=== PATIENT | male | born 1940 | race Caucasian/White ===

== ENCOUNTER 2016-12-03 09:59 | Inpatient (IN) | payer MEDICARE, OTHER ==
--- NOTE | ~2016-12-03 | CN ---
Consultation Report [facility] [address] [place]. [address] NAME: MONTY MUNOZ : 42 STATUS : ADM IN [facility]#: [id number] AGE: 76 ADM/REG DATE : 12/03/16 MR#: [id number] REPORT SERV DATE: 12/04/16 DICTATED BY: LEONARD CHAMPION DATE: 12/04/16 REPORT STATUS : Draft TRANSCRIBED BY: MODL DATE: 12/04/16 CONSULTATION REPORT DATE OF CONSULTATION: Dear Dr. Thompson: Thank you for requesting my opinion regarding evaluation and management of Mr. Monty Munoz's shortness of breath and hypoxic respiratory failure. Mr. Munoz is a pleasant 76-year- old gentleman with a significant past medical history of right upper lobe adenocarcinoma, status post lobectomy with recurrence in June of 2016, status post SBRT who presents to [facility] with worsening shortness of breath and dyspnea on exertion. The patient states that since his radiation therapy he has poor energy and shortness of breath. He has undergone several courses of outpatient antibiotics and over the past several weeks, he has developed a fever of 101 and worsening lslkpdwl-tv-mgwiee shortness of breath, well localized to the chest, nonradiating with no significant alleviating or exacerbating factors. He has had associated chills, productive green sputum, and left upper lobe chest discomfort. He denies any current chest pain, palpitations, nausea, vomiting, diarrhea, or constipation. During his hospitalization, he feels that he is slightly improved in terms of his dyspnea, but he is requiring high levels of oxygen. REVIEW OF SYSTEMS: A detailed 14-point review of systems was completed. Pertinent positives and negatives are listed above. PAST MEDICAL HISTORY: 1. Right upper lobe adenocarcinoma, status post right upper lobe lobectomy. 2. T1 N0 M0 stage IA moderately differentiated adenocarcinoma, status post SBRT. 3. Pleurodesis. 4. Coronary artery disease with a stent to place 12 years ago. 5. BPH. ALLERGIES: HYDROCHLOROTHIAZIDE, LOSARTAN, AND LIPITOR. HOME MEDICATIONS: Reviewed and located in the paper chart. FAMILY HISTORY: Cancer and coronary artery disease. SOCIAL HISTORY: The patient lives in [place], [place]. 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 He denies any significant alcohol or current illicit drug abuse. He did have a history of 28-[id number]-elxt smoking history, but quit 15 years ago. PHYSICAL EXAMINATION: Consultation Report [address] [place]. [address] NAME: MONTY MUNOZ : 42 STATUS : ADM IN PAT#: [id number] AGE: 76 ADM/REG DATE : 12/03/16 MR#: [id number] REPORT SERV DATE: 12/04/16 DICTATED BY: LEONARD CHAMPION DATE: 12/04/16 REPORT STATUS : Draft TRANSCRIBED BY: MODL DATE: 12/04/16 VITAL SIGNS: Afebrile, T-current 99.6; pulse of 121 on Vapotherm 20 liters; saturations 93%; blood pressure 197/60. GENERAL: Chronically ill-appearing elderly gentleman in mild respiratory distress. The patient able to communicate in full paragraphs at a time. HEENT: Normocephalic and atraumatic. Pupils are equal, round, and reactive to light and accommodation. Posterior oropharynx is clear. NECK: No JVD. No LAD. Trachea midline. CARDIOVASCULAR: Regular rate and rhythm. S1 and S2 present. LUNGS: Coarse bilateral breath sounds and rhonchi. ABDOMEN: Nontender, nondistended, and soft. Positive bowel sounds. EXTREMITIES: No clubbing, cyanosis, or edema. SKIN: No new rashes, lesions, or ulcers. PSYCHIATRIC: Alert and oriented x3. Cranial nerves II through XII are intact. Gait not tested. DTRs not performed. LABORATORY: White count of 9, down from 13.9; hemoglobin 10; and platelet count of 371. Troponin leak. Procalcitonin is negative. Creatinine of 0.92. PH is 7.47, PaCO2 of 30, and PaO2 of 66. 1. CTA of the chest performed on 12/03/2016 demonstrates no evidence of PE. 2. Previously noted right lower lobe 1.6 cm subpleural nodule is obscured from adjacent lung consolidation. 3. Multifocal consolidation in the lower lobes and lateral right middle lobe concerning for acute pneumonia or aspiration with underlying chronic interstitial lung disease with basilar fibrosis and honeycombing in upper lobe cystic disease. This chest CT has been personally reviewed by me, I agree with the above interpretation. ASSESSMENT AND PLAN: Mr. Munoz is a pleasant 76-year-old gentleman with a significant past medical history of 72-[id number] smoking history, chronic obstructive pulmonary disease, right upper lobe lobectomy for adenocarcinoma and recent right lower lobe adenocarcinoma recurrence with status post SBRT who presents with a several prior courses of respiratory issues requiring outpatient antibiotic therapy and now associated fevers, chills, and bilateral infiltrates on CT scan consistent with HCAP pneumonia. The patient likely has multifactorial shortness of breath due to the followin. Healthcare-acquired pneumonia. 2. Prior radiation injury to the right lower lobe. 3. Severe emphysema. 4. Basilar fibrotic changes, unclear etiology, possible underlying interstitial lung disease versus severe emphysema and postinflammatory changes. 5. Concomitant coronary disease. At this point, I recommend the following to optimize his pulmonary status: 1. Agree with echo. 2. Start Solu-Medrol and transition to p.o. prednisone. 3. Continue vancomycin, Zosyn, and Levaquin for HCAP coverage. Consultation Report [address] [place]. [address] NAME: MONTY MUNOZ : 42 STATUS : ADM [facility]#: [id number] AGE: 76 ADM/REG DATE : 12/03/16 MR#: [id number] REPORT SERV DATE: 12/04/16 DICTATED BY: LEONARD CHAMPION DATE: 12/04/16 REPORT STATUS : Draft TRANSCRIBED BY: LARISSA DATE: 12/04/16 4. Lara, Yusra, and Frank scheduled p.r.n. 5. Repeat chest x-ray in a.m. 6. ABG in a.m. 7. I discussed code status with the patient and wants to remain a full code. 8. I will follow along with you closely. 9. There is no clear evidence of lung cancer recurrence, although the pneumonic process could be obscuring underlying progression. Thank you for allowing me to participate in Mr. Munoz's care. CHILANGO/LARISSA Leonard Champion M.D. / [id number] CC: MD Aidan Marcos II, D.O.
--- NOTE | ~2016-12-03 | OP ---
Record Of Operation [facility] [address] [place]. [address] NAME: MONTY LAKE : 42 STATUS : ADM IN PAT#: [id number] AGE: 76 ADM/REG DATE : 12/03/16 MR#: [id number] REPORT SERV DATE: 12/09/16 DICTATED BY: LINDA BARBOUR DATE: 12/08/16 REPORT STATUS : Draft TRANSCRIBED BY: MODL DATE: 12/08/16 DATE OF PROCEDURE: 12/08/2016 PROCEDURE: Vas-Cath insertion. INDICATION FOR PROCEDURE AND PREOPERATIVE DIAGNOSIS: Acute kidney injury. POSTOPERATIVE DIAGNOSIS: Acute kidney injury. PROCEDURE NOTE: The patient was placed in Trendelenburg position, had an adequate enlarged right IJ insertion site. We sterilized and draped this area in standard fashion. We were able to place lidocaine and inserted the finer needle in the IJ. We then placed a guidewire and follow the guidewire on ultrasound to make sure it was in the IJ. We then dilated and placed a Vas-Cath in standard technique and sutured this end. We draped in standard fashion and had had returned of red blood bilaterally. The ports were instilled with heparin as required. OUTCOME: Successful right IJ Vas-Cath placement. HFQ/LARISSA Linda Barbour MD / [id number] CC: Yasir England II, MD
--- NOTE | ~2016-12-03 | DS ---
Discharge Summary [address] [place]. [address] NAME: MONTY LAKE : 42 STATUS : DIS IN PAT#: [id number] AGE: 76 ADM/REG DATE : 12/03/16 MR#: [id number] REPORT SERV DATE: 12/11/16 DICTATED BY: RICHARDSON HECK DATE: 12/10/16 REPORT STATUS : Draft TRANSCRIBED BY: MODL DATE: 12/10/16 ADMISSION DATE: 12/03/2016 DISCHARGE DATE: 12/10/2016 DISCHARGE DIAGNOSES: 1. Acute respiratory failure. 2. Sepsis. 3. Contrast-induced nephropathy. 4. Chronic obstructive pulmonary disease, lung mass. 5. Healthcare acquired pneumonia. 6. Continuation of septic shock, chronic obstructive pulmonary disease and possible interstitial lung disease. The patient required high-flow O2 via Vapotherm, but eventually required mechanical ventilation. He was treated for his healthcare acquired associated pneumonia with Zosyn and vancomycin. He developed progressive renal insufficiency and required [employer]ARM [employer]. He is also followed by Oncology. His hypoxemia became worse. His sepsis continue to become more and more severe requiring triple pressors, Levophed, vasopressin, and Asa-Synephrine. Acute kidney injury was being treated by the renal replacement therapy. However, he is able to sustain this and in discussions with his healthcare power of employment law attorney, it was decided that the patient's criteria has written that to continue prolonged life support to be withdrawn on 12/10/2016, today. His sodium was 142, potassium 3.6, chloride 102, CO2 of 32, BUN 19, creatinine 1.17 on DRT. H and H 9.0 and 26.5, white count 8400, saturations between 88% to 92% on 100%, 10 to 12 PEEP on the ventilator. The patient developed atrial fibrillation with rapid ventricular response and required both amiodarone and cardioversion therapy. Cardioversion therapy covered SVT as evidence by Adenocard. RP/LARISSA Richardson Heck M.D. / [id number] CC: MD Aidan Marcos II, D.O.
--- NOTE | ~2016-12-03 | CN ---
Consultation Report [facility] [address] [place]. [address] NAME: MONTY MUNOZ : 42 STATUS : ADM IN PAT#: [id number] AGE: 76 ADM/REG DATE : 12/03/16 MR#: [id number] REPORT SERV DATE: 12/08/16 DICTATED BY: CHASE GAGNON DATE: 12/08/16 REPORT STATUS : Draft TRANSCRIBED BY: MODL DATE: 12/08/16 NEPHROLOGY CONSULTATION DATE OF CONSULTATION: 12/08/2016 INDICATION FOR CONSULTATION: Acute kidney injury. HISTORY OF PRESENT ILLNESS: Mr. Munoz is a 76-year-old male who presented with complaints of pleuritic chest pain and shortness of breath. He has a history of right upper lobe lobectomy for lung CA and recurrence of adeno CA in 2015 which was treated with stereotactic body radiation therapy. Oncology feels like he is in remission from his lung cancer. He presented with a creatinine of 0.85 and received a contrasted CT scan of his chest on 12/03/2016 with initial rise in his creatinine to 1.86 on 12/05/2016 and subsequent rise to 3.63. He presently is on the ventilator requiring Levophed for blood pressure support and has been acidotic requiring a bicarb infusion. The patient is on levofloxacin, vancomycin, and Zosyn for antibiotic coverage and has been receiving steroids as well. He has required straight catheterization for urinary retention with 525 mL obtained, presently he has an indwelling Maldonado. PAST MEDICAL HISTORY: Recent healthcare associated pneumonia; lung CA, status post resection with recurrence in 06/2016, treated with SBRT; COPD; coronary artery disease with remote PCI; gastroesophageal reflux disease; colon polyps; cholecystectomy; BPH; depression; hyperlipidemia; and removal of laryngeal polyps. SOCIAL HISTORY: The patient lives in [place] with a friend per chart. 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 He has a 50+ pack year smoking history, quit 15 years ago. No alcohol or drug use per chart. FAMILY HISTORY: Mother of cancer in her 80s, father of coronary artery disease at 61, one sister in MVA per chart. REVIEW OF SYSTEMS: Unable to obtain. ALLERGIES: HYDROCHLOROTHIAZIDE, LOSARTAN, LIPITOR ALL CAUSE STOMACH PAIN. HOME MEDICATIONS: Tylenol, aspirin, Coreg, Lexapro, multivitamin, Protonix, Flomax, and Proctozone. PHYSICAL EXAMINATION: GENERAL: Chronically ill male, sedated on ventilator. VITAL SIGNS: Blood pressure 98/54, temperature 98.7, respiratory rate 18, pulse 89. HEENT: Eyes: No scleral icterus. Pupils reactive. Nares patent. Mouth with OG and ET tube in place. Consultation Report [address] [id number] [facility] [place] [address] NAME: MONTY MUNOZ : 42 STATUS : ADM IN [facility]#: [id number] AGE: 76 ADM/REG DATE : 12/03/16 MR#: [id number] REPORT SERV DATE: 12/08/16 DICTATED BY: CHASE GAGNON DATE: 12/08/16 REPORT STATUS : Draft TRANSCRIBED BY: LARISSA DATE: 12/08/16 NECK: No thyromegaly or masses. CHEST/LUNGS: Bilateral crackles greater on the right. A few scattered rhonchi. CARDIAC: Irregular rhythm. Unable to appreciate murmur, gallop, or rub. ABDOMEN: Supple. Normoactive bowel sounds. No hepatosplenomegaly. No masses. : Indwelling Maldonado. RECTAL: Not performed. EXTREMITIES: 1+ edema. No calf tenderness. DERMIS: No rash. No skin lesions. NEUROLOGIC: Unable to evaluate. MUSCULOSKELETAL: No deformity. No joint effusions. IMPRESSION: 1. Acute kidney injury, likely secondary to acute tubular necrosis associated with sepsis and pneumonia, possibly complicated by contrast nephropathy. 2. Hypoxemic-hypercarbic respiratory failure, on ventilator. 3. Pneumonia. 4. Acidosis. 5. Anemia. 6. Shock, on Levophed. 7. Adenocarcinoma of lung, status post resection with recurrence, treated with SBRT. 8. Chronic obstructive pulmonary disease. 9. Coronary artery disease, status post PCI. 10.Gastroesophageal reflux disease. 11.Remote cholecystectomy. 12.Colon polyps. 13.BPH with urinary retention. 14.Depression. 15.Hyperlipidemia. 16.Removal of laryngeal polyps remotely. PLAN: 1. Labs. 2. Initiate CRRT for acute kidney injury, acidosis, and volume removal. CLAUDINE/LARISSA Chase Gagnon M.D. / [id number] CC: Yasir England II, MD
--- NOTE | ~2016-12-03 | OP ---
Record Of Operation [facility] [address] [address] NAME: MONTY LAKE : 42 STATUS : DIS IN PAT#: [id number] AGE: 76 ADM/REG DATE : 12/03/16 MR#: [id number] REPORT SERV DATE: 12/13/16 DICTATED BY: RICHARDSON NORRIS DATE: 12/09/16 REPORT STATUS : Draft TRANSCRIBED BY: MODL DATE: 12/09/16 DATE OF PROCEDURE: 12/09/2016 TIME: 2100 hours. PROCEDURE: Bronchoscopy. INDICATION: Clear secretions, emergent. DESCRIPTION OF PROCEDURE: The patient is on 100% oxygen and monitored by blood pressure, EKG, and pulse oximetry, on ventilator. Sedated with propofol. Bronchoscope was introduced via ET tube. Findings, small amount of secretions were removed with gentle lavage. The patient tolerated the procedure well. AURORA/LARISSA Richardson Norris M.D. / [id number] CC: Yasir England II, MD
--- NOTE | ~2016-12-03 | CN ---
Consultation Report [address] [place]. [address] NAME: MONTY MUNOZ : 42 STATUS : ADM IN [facility] WITH [facility]#: [id number] AGE: 76 ADM/REG DATE : 12/03/16 MR#: [id number] REPORT SERV DATE: 12/03/16 DICTATED BY: JAS DOW DATE: 12/03/16 REPORT STATUS : Draft TRANSCRIBED BY: MODL DATE: 12/03/16 DATE OF CONSULTATION: 12/03/2016 REASON FOR REFERRAL: Lung cancer. HISTORY OF PRESENT ILLNESS: Mr. Munoz is a gentleman admitted with pneumonia. I personally reviewed his CTA which shows evidence of lobar consolidation. There is no evidence of recurrence of his lung cancers. He has a history of a non-small cell lung cancer stage II, treated with lobectomy in 2002. He received one cycle of adjuvant chemotherapy. He has been without evidence of recurrence. His chemotherapy was stopped due to toxicity. He had a recurrence in 2016, treated with SBRT. He has also been without recurrence from this second cancer. He does have a COPD, hyperlipidemia, and anxiety. All of which are well controlled at this time. REVIEW OF SYSTEMS: He has had shortness of breath, fatigue, and dyspnea. PHYSICAL EXAMINATION: He is well developed. He has a regular rate and rhythm. He has coarse breath sounds bilaterally. DATA REVIEW: I personally reviewed his CT scan which is as described above. LABORATORY STUDIES: Include a WBC of 13.9, hemoglobin 11.2, platelets 375,000. ASSESSMENT: 1. Lung cancer, status post status post remote history of resection with a new primary tumor treated with stereotactic body radiation therapy. He is without evidence of recurrence. 2. History of talc pleurodesis which makes imaging difficult to determine. 3. New diagnosis of pneumonia, on antibiotics, and feeling better. 4. I will follow along with you periodically. MALCOLM/LARISSA Jas Dow M.D. Consultation Report [address] [address] NAME: MONTY MUNOZ : 42 STATUS : ADM IN PAT#: [id number] AGE: 76 ADM/REG DATE : 12/03/16 MR#: [id number] REPORT SERV DATE: 12/03/16 DICTATED BY: JAS DOW DATE: 12/03/16 REPORT STATUS : Draft TRANSCRIBED BY: LARISSA DATE: 12/03/16 / [id number] CC: Tyler Hurtado MD
--- NOTE | ~2016-12-03 | HP ---
History And Physical [address] [place]. [address] NAME: MONTY LAKE : 42 STATUS : ADM IN [facility]#: [id number] AGE: 76 ADM/REG DATE : 12/03/16 MR#: [id number] REPORT SERV DATE: 12/03/16 DICTATED BY: JR. THOMPSON WILLIAM JOHN DATE: 12/03/16 REPORT STATUS : Draft TRANSCRIBED BY: LARISSA DATE: 12/03/16 DATE OF ADMISSION: 12/03/2016 Case was discussed with Dr. Iraheta in the emergency room. HISTORY OF PRESENT ILLNESS: This is a 76-year-old white male with a history of adenocarcinoma of the lung status post right upper lobe lobectomy remotely with recurrence in June of 2016 status post radiation therapy in July 2016 who presents to the emergency room with complaint of chest pain and shortness of breath. The patient states that he since radiation in July 2016, he has had poor energy with cough and shortness of breath. He has had subjective fevers and chills throughout the course. He was given 2 courses of Zithromax to take if he felt poorly. He took 1 from October 05 through and again from November 19 through . He has had subjective fevers with a recorded temperature of 101 at home. He says he has not had fever recently as most recent fever was about a week and half ago. He has had chills, cough productive of green phlegm, and then this morning, he developed left upper chest pain x2 and it lasts about 30 seconds each. It was worse with breathing and accompanied by shortness of breath and nausea. No vomiting. There was dizziness. No diaphoresis. He came to the emergency room for further help. PAST MEDICAL HISTORY: Includes 1. History of right upper lobe adenocarcinoma status post right upper lobe lobectomy. 2. Recent right lower lobe T1 N0 stage IA, moderately differentiated adenocarcinoma with recurrence. 3. History of pleurodesis. 4. Coronary artery disease with history of stent 12 years ago. 5. Benign prostatic hypertrophy. HOME MEDICATIONS: Include 1. Tylenol as needed. 2. Aspirin 81 daily. 3. Coreg 3.125 twice a day. 4. Lexapro 10 daily. 5. Multivitamin daily. 6. Protonix 40 daily. 7. Flomax 0.4 daily. 8. Proctozone topically as needed for hemorrhoids. ALLERGIES: TO HYDROCHLOROTHIAZIDE WHICH CAUSES STOMACH PAIN; LOSARTAN WHICH CAUSES STOMACH PAIN; AND LIPITOR WHICH CAUSES STOMACH PAIN. FAMILY HISTORY: Mother in her 80s of cancer. Father at age 61 of coronary artery disease. One sister young of a motor vehicle accident. SOCIAL HISTORY: Lives in [place], [place], with his friend. 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 [address] NAME: MONTY LAKE : 42 STATUS : ADM IN PAT#: [id number] AGE: 76 ADM/REG DATE : 12/03/16 MR#: [id number] REPORT SERV DATE: 12/03/16 DICTATED BY: JR. 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 He denies alcohol. He quit smoking 15 years ago after a 50+ pack-year history. Denies illicit drugs. Code status was discussed with the patient. He desires full resuscitative measures. REVIEW OF SYSTEMS: Negative when all 12 systems reviewed except did admit to fevers, chills, decreased appetite, occasional headache, cough without bleeding, shortness of breath, nausea with no vomiting, alternating diarrhea and constipation, dysuria, and depression without suicidal or homicidal ideation. PHYSICAL EXAMINATION: VITAL SIGNS: Temperature 98, blood pressure 135/91, heart rate 94, and respiratory rate of 18. GENERAL: The patient is alert and oriented, in no acute distress. He had no conversational dyspnea. No use of accessary muscles of respiration. HEENT: Pupils are equal, round, and reactive to light. Extraocular motion intact. Sclerae were anicteric. Oropharynx clear. NECK: Supple. There is no jugular venous distention or thyromegaly. LUNGS: Clear to auscultation bilaterally. CARDIOVASCULAR: S1, S2 without gallop, murmur, or rub. LUNGS: Had faint crackles in bilateral bases with distant breath sounds and poor air entry. ABDOMEN: Soft, nontender, bowel sounds present. No hepatosplenomegaly. EXTREMITIES: Show no clubbing, cyanosis, or edema. NEUROLOGICAL: Cranial nerves II through XII are intact. Strength and sensation were full and equal throughout. LYMPH: Lymph node survey is negative in cervical and supraclavicular regions. DERMATOLOGIC: There is no rash or other lesion. DATA: SpO2 was 100% on 20 L by Vapotherm. Laboratories: Lactate was 0.7. White count 13.9, hemoglobin 11.2, platelets 375, and 87% neutrophils. PT was 16.4 with an INR of 1.3. PTT 29.6, procalcitonin less than 0.05. Sodium 128, potassium 3.9, chloride 97, bicarb 25, BUN 14, and creatinine 0.85. Glucose 120. Magnesium 2, calcium 8.4, BNP of 94.6. Troponin I is 0.1. Arterial blood gas showed a pH of 7.47, pCO2 of 30, and PO2 of 66 on an unspecified amount of oxygen. Chest x-ray showed diffuse bilateral edema versus infiltrate. CT pulmonary angiogram showed no evidence of pulmonary embolism. There was right middle lobe and bilateral lower lobe consolidation with honeycombing and chronic interstitial lung disease. EKG is personally reviewed, showed sinus rhythm at rate [address] or T-wave changes. ASSESSMENT AND PLAN: This is a 76-year-old white male with 1. Community-acquired pneumonia in the setting of lung cancer with recurrence, status post lobectomy and left lower lobe x-ray therapy in July 2016. We will check sputum culture and blood cultures. Empirically place the patient on Zosyn and Levaquin. 2. Acute hypoxic respiratory failure on chronic lung disease. We will use Vapotherm to keep saturation greater than or equal to 90%. Give nebulizers per protocol. There History And Physical [address] [address] NAME: MONTY LAKE : 42 STATUS : ADM IN [facility]#: [id number] AGE: 76 ADM/REG DATE : 12/03/16 MR#: [id number] REPORT SERV DATE: 12/03/16 DICTATED BY: JR. THOMPSON WILLIAM JOHN DATE: 12/03/16 REPORT STATUS : Draft TRANSCRIBED BY: LARISSA DATE: 12/03/16 seems to be no evidence of reactive airway disease. We will therefore not use steroids. 3. Hyponatremia. We will monitor. 4. Pleuritic chest pain. We will check troponin x3. Check an echocardiogram. Of note, his troponin 0.1. We will monitor for the curve if there were no EKG changes. 5. Dysuria. We will check urinalysis with reflex culture. 6. Benign prostatic hypertrophy. Continue Flomax. 7. History of lung cancer. We will consult Dr. Alvarez. He will follow as an outpatient. 8. This patient is full code. WJF/MODL Ruslan Thompson Jr, MD / [id number]
--- NOTE | ~2016-12-03 | OP ---
Record Of Operation [facility] [address] [place]. [address] NAME: MONTY LAKE : 42 STATUS : ADM IN [facility]#: [id number] AGE: 76 ADM/REG DATE : 12/03/16 MR#: [id number] REPORT SERV DATE: 12/06/16 DICTATED BY: LINDA BARBOUR DATE: 12/06/16 REPORT STATUS : Draft TRANSCRIBED BY: MODL DATE: 12/06/16 DATE OF PROCEDURE: 12/06/2016 PROCEDURE: Endotracheal intubation. INDICATION FOR PROCEDURE: The patient is being transferred to the intensive care unit with acute hypoxic respiratory failure, increased work of breathing. PREOPERATIVE DIAGNOSES: Chronic obstructive pulmonary disease, interstitial lung disease, lung resection, acute pneumonia. POSTINTUBATION DIAGNOSES: Chronic obstructive pulmonary disease, interstitial lung disease, lung resection, acute pneumonia. PROCEDURE NOTE: The patient was brought to the CCU, was given BiPAP therapy, oxygen saturation was around 90 to 91 at best with a full FiO2 support. He was switched over to [id number] ventilation after giving etomidate. Using a GlideScope, we had a grade 4 view, placed the ET tube through the vocal cords with no difficulty. The patient had change of condensation, change of the CO2 monitor, and equal breaths bilaterally with bilateral rise. OUTCOME: Successful endotracheal intubation. MAURICIOQ/LARISSA Linda Barbour MD / [id number] CC: Yasir England II, MD
[2016-12-03 09:40] LABS: BASOPHILS 0.1 %; BASOPHILS ABSOLUTE 0.01 10/3/uL (0.0-0.16); EOSINOPHILS 0.2 %; EOSINOPHILS ABSOLUTE 0.03 10/3/uL (0.0-0.53); HEMOGLOBIN 11.2 g/dL (13.6-17.8); IMMATURE GRANULOCYTES 0.4 %; IMMATURE GRANULOCYTES ABSOLUTE 0.05 10/3/uL (0.0-0.11); LYMPHOCYTES 6.4 %; LYMPHOCYTES ABSOLUTE 0.88 10/3/uL (0.67-4.30); MEAN CORPUS HGB CONC 34.8 g/dL (32.0-36.0); MEAN CORPUSCULAR HEMOGLOB 29.2 pg (26.0-34.0); MEAN PLATELET VOLUME 7.9 fL (9.2-13.0); MONOCYTES 6.1 %; MONOCYTES ABSOLUTE 0.85 10/3/uL (0.21-1.20); NEUTROPHILS 86.8 %; NEUTROPHILS ABSOLUTE 12.03 10/3/uL (2.02-8.40); RBC DISTRIBUTION WIDTH 13.1 % (12.0-16.0); RED CELL COUNT 3.83 10/6/uL (4.7-6.1)
[2016-12-03 09:41] LABS: HEMATOCRIT 32.2 % (40.0-51.0); MANUAL DIFF NO %; MEAN CORPUSCULAR VOLUME 84.1 fL (80-100); PLATELET COUNT 375 10/3/uL (150-400); WHITE BLOOD CELLS 13.9 10/3/uL (4.5-10.5)
[2016-12-03 09:46] LABS: INTERNATIONAL NORMAL RATI 1.3 UNITS (-); PARTIAL THROMBO TIME 29.6 SEC (22.5-37.2); PROTIME (NOT ORD) 16.4 SEC (12.0-14.5)
[2016-12-03 09:52] LABS: ALLENS TEST Pos; BE (BASE EXCESS) -1.1 MEQ/L (0 +/- 2.5); CARBOXYHEMOGLOBIN 1.7 % (0-3); DEVICE NC; HCO3 (ACTUAL BICARBONATE) 21.6 MEQ/L (23-27); HEMOBLOGIN CONTENT 11.9 G/DL (14-18); INSTRUMENT SERIAL # 8087; METHEMOGLOBIN 0.2 % (0-3); O2 CONTENT 15.1 VOL% (18-24); OPERATOR ID 32214; PCO2 (CO2 TENSION) 30 MMHG (35-45); PO2 (O2 TENSION) 66 MMHG (79-93); SAMPLE Arterial; pH 7.47 (7.37-7.43)
[2016-12-03 09:56] LABS: BUN (BLOOD UREA NITROGEN) 14 MG/DL (6-23); CALCIUM, SERUM 8.4 MG/DL (8.5-10.4); CHLORIDE, SERUM 97 MMOL/L (96-112); CO2 (CARBON DIOXIDE) 25 MMOL/L (24-34); CREATININE 0.85 MG/DL (0.70-1.30); GFR AFRICAN AMERICAN 99 ML/MIN (>=60); GFR NON AFRICAN AMERICAN 85 ML/MIN (>=60); GLUCOSE, SERUM 120 MG/DL (60-99); POTASSIUM, SERUM 3.9 MMOL/L (3.5-5.3); SODIUM, SERUM 128 MMOL/L (135-148)
[2016-12-03 09:58] LABS: CHEST PAIN PROFILE TAT 0 Hrs 23 Mins; TROPONIN I 0.06 NG/ML (<0.05)
[~2016-12-03 09:59] MED LIST: ASAB PO; COREG3 PO; LEXAPRO10 PO; LIPITOR40 PO; PROTONIX PO; TOPXL25 PO; ZITH250 PO
[2016-12-03] MEDS ORDERED: LEXAPRO10 PO (10:00)
[2016-12-03] MEDS ORDERED: ASAB PO (10:00)
[2016-12-03] MEDS ORDERED: PROTONIX PO (10:01)
[2016-12-03] MEDS ORDERED: COREG3 PO (10:01)
[2016-12-03] MEDS ORDERED: FLOMAX4 PO (10:03)
[2016-12-03] MEDS ORDERED: PROCTOZONE HC 2.5% TOP (10:05)
[2016-12-03] MEDS ORDERED: T PO (10:06)
[2016-12-03] MEDS ORDERED: THERGRANM PO (10:07)
[2016-12-03 11:35] LABS: PROCALCITONIN <0.05 ng/mL (<0.5)
[2016-12-03 13:36] LABS: ASCORBIC ACID (UR NOT ORDER) NEG (NEG); BILIRUBIN, URINE NEGATIVE (NEG); ER URINALYSIS TAT 0 Hrs 09 Mins; KETONE, URINE NEGATIVE (NEG); LEUKOCYTE ESTERASE(NOT OR NEG (NEG); NITRITE (URINE) NEG (NEG); WBC (NOT ORDERED) (RFLEX) 1 (0-5)
[2016-12-04 05:18] LABS: BASOPHILS 0.3 %; BASOPHILS ABSOLUTE 0.03 10/3/uL (0.0-0.16); EOSINOPHILS 2.4 %; EOSINOPHILS ABSOLUTE 0.24 10/3/uL (0.0-0.53); HEMOGLOBIN 10.8 g/dL (13.6-17.8); IMMATURE GRANULOCYTES 0.3 %; IMMATURE GRANULOCYTES ABSOLUTE 0.03 10/3/uL (0.0-0.11); LYMPHOCYTES 8.7 %; LYMPHOCYTES ABSOLUTE 0.85 10/3/uL (0.67-4.30); MEAN CORPUS HGB CONC 33.8 g/dL (32.0-36.0); MEAN CORPUSCULAR HEMOGLOB 29.2 pg (26.0-34.0); MEAN CORPUSCULAR VOLUME 86.5 fL (80-100); MEAN PLATELET VOLUME 8.2 fL (9.2-13.0); MONOCYTES 9.8 %; MONOCYTES ABSOLUTE 0.96 10/3/uL (0.21-1.20); NEUTROPHILS 78.5 %; NEUTROPHILS ABSOLUTE 7.71 10/3/uL (2.02-8.40); PLATELET COUNT 371 10/3/uL (150-400); RBC DISTRIBUTION WIDTH 13.4 % (12.0-16.0); WHITE BLOOD CELLS 9.8 10/3/uL (4.5-10.5)
[2016-12-04 05:21] LABS: MANUAL DIFF NO %
[2016-12-04 05:27] LABS: BUN (BLOOD UREA NITROGEN) 12 MG/DL (6-23); CALCIUM, SERUM 8.5 MG/DL (8.5-10.4); CHLORIDE, SERUM 104 MMOL/L (96-112); CO2 (CARBON DIOXIDE) 25 MMOL/L (24-34); CREATININE 0.92 MG/DL (0.70-1.30); GFR AFRICAN AMERICAN 94 ML/MIN (>=60); GFR NON AFRICAN AMERICAN 81 ML/MIN (>=60); GLUCOSE, SERUM 98 MG/DL (60-99); POTASSIUM, SERUM 4.1 MMOL/L (3.5-5.3)
[2016-12-04 05:28] LABS: SODIUM, SERUM 137 MMOL/L (135-148)
[2016-12-04 06:00] LABS: PROCALCITONIN 0.07 ng/mL (<0.5)
[2016-12-05 05:46] LABS: ALLENS TEST Pos; BE (BASE EXCESS) -3.5 MEQ/L (0 +/- 2.5); CARBOXYHEMOGLOBIN 0.5 % (0-3); HEMOBLOGIN CONTENT 10.9 G/DL (14-18); INSTRUMENT SERIAL # 8083; METHEMOGLOBIN 0.3 % (0-3); O2 CONTENT 14.7 VOL% (18-24); PCO2 (CO2 TENSION) 36 MMHG (35-45); PO2 (O2 TENSION) 84 MMHG (79-93); SAMPLE Arterial; pH 7.39 (7.37-7.43)
[2016-12-05 06:22] LABS: BASOPHILS 0 %; EOSINOPHILS 0 %; HEMATOCRIT 31.2 % (40.0-51.0); HEMOGLOBIN 10.4 g/dL (13.6-17.8); IMMATURE GRANULOCYTES 0.3 %; IMMATURE GRANULOCYTES ABSOLUTE 0.03 10/3/uL (0.0-0.11); LYMPHOCYTES 5.9 %; LYMPHOCYTES ABSOLUTE 0.58 10/3/uL (0.67-4.30); MANUAL DIFF NO %; MEAN CORPUS HGB CONC 33.3 g/dL (32.0-36.0); MEAN CORPUSCULAR HEMOGLOB 29.2 pg (26.0-34.0); MEAN CORPUSCULAR VOLUME 87.6 fL (80-100); MEAN PLATELET VOLUME 8.1 fL (9.2-13.0); MONOCYTES 4.4 %; MONOCYTES ABSOLUTE 0.43 10/3/uL (0.21-1.20); NEUTROPHILS 89.4 %; NEUTROPHILS ABSOLUTE 8.71 10/3/uL (2.02-8.40); PLATELET COUNT 391 10/3/uL (150-400); RBC DISTRIBUTION WIDTH 13.3 % (12.0-16.0); RED CELL COUNT 3.56 10/6/uL (4.7-6.1); WHITE BLOOD CELLS 9.8 10/3/uL (4.5-10.5)
[2016-12-05 06:26] LABS: CALCIUM, SERUM 8.7 MG/DL (8.5-10.4); CHLORIDE, SERUM 101 MMOL/L (96-112); CO2 (CARBON DIOXIDE) 25 MMOL/L (24-34); POTASSIUM, SERUM 4.2 MMOL/L (3.5-5.3); SODIUM, SERUM 134 MMOL/L (135-148)
[2016-12-05 06:27] LABS: BUN (BLOOD UREA NITROGEN) 22 MG/DL (6-23); CREATININE 1.86 MG/DL (0.70-1.30); GFR AFRICAN AMERICAN 40 ML/MIN (>=60); GFR NON AFRICAN AMERICAN 35 ML/MIN (>=60); GLUCOSE, SERUM 124 MG/DL (60-99)
[2016-12-05 17:16] LABS: ASCORBIC ACID (UR NOT ORDER) NEG (NEG); BILIRUBIN, URINE NEGATIVE (NEG); KETONE, URINE NEGATIVE (NEG); LEUKOCYTE ESTERASE(NOT OR NEG (NEG); WBC (NOT ORDERED) (RFLEX) < 1 (0-5)
[2016-12-05 18:10] LABS: CREATININE, URINE 37.8 MG/DL
[2016-12-06 06:48] LABS: CALCIUM, SERUM 8.7 MG/DL (8.5-10.4); CHLORIDE, SERUM 105 MMOL/L (96-112); GFR AFRICAN AMERICAN 22 ML/MIN (>=60); GFR NON AFRICAN AMERICAN 19 ML/MIN (>=60); GLUCOSE, SERUM 108 MG/DL (60-99); POTASSIUM, SERUM 4.1 MMOL/L (3.5-5.3); SODIUM, SERUM 137 MMOL/L (135-148)
[2016-12-06 06:49] LABS: BUN (BLOOD UREA NITROGEN) 40 MG/DL (6-23); CO2 (CARBON DIOXIDE) 19 MMOL/L (24-34); CREATININE 3.11 MG/DL (0.70-1.30)
[2016-12-06 08:33] LABS: ALLENS TEST Pos; BE (BASE EXCESS) -6.8 MEQ/L (0 +/- 2.5); CARBOXYHEMOGLOBIN 0.3 % (0-3); DEVICE HFNC; INSTRUMENT SERIAL # 35151; METHEMOGLOBIN 0.8 % (0-3); O2 CONTENT 14.7 VOL% (18-24); OPERATOR ID 13624; PCO2 (CO2 TENSION) 34 MMHG (35-45); PO2 (O2 TENSION) 57 MMHG (79-93); SAMPLE Arterial; pH 7.35 (7.37-7.43)
[2016-12-06 15:29] LABS: ALLENS TEST Pos; BE (BASE EXCESS) -6.7 MEQ/L (0 +/- 2.5); CARBOXYHEMOGLOBIN 0.3 % (0-3); HEMOBLOGIN CONTENT 11.7 G/DL (14-18); INSTRUMENT SERIAL # 35151; METHEMOGLOBIN 0.8 % (0-3); O2 CONTENT 16.2 VOL% (18-24); PCO2 (CO2 TENSION) 45 MMHG (35-45); PO2 (O2 TENSION) 137 MMHG (79-93); SAMPLE Arterial; TIDAL VOLUME 550 ML; pH 7.27 (7.37-7.43)
[2016-12-06 18:14] LABS: CALCIUM, SERUM 8.2 MG/DL (8.5-10.4); CHLORIDE, SERUM 105 MMOL/L (96-112); CO2 (CARBON DIOXIDE) 21 MMOL/L (24-34); POTASSIUM, SERUM 4.9 MMOL/L (3.5-5.3); SODIUM, SERUM 136 MMOL/L (135-148)
[2016-12-06 18:15] LABS: BUN (BLOOD UREA NITROGEN) 45 MG/DL (6-23); CREATININE 3.61 MG/DL (0.70-1.30); GFR AFRICAN AMERICAN 18 ML/MIN (>=60); GFR NON AFRICAN AMERICAN 16 ML/MIN (>=60); GLUCOSE, SERUM 182 MG/DL (60-99)
[2016-12-06 21:04] LABS: BE (BASE EXCESS) -7.2 MEQ/L (0 +/- 2.5); CARBOXYHEMOGLOBIN 0.4 % (0-3); HCO3 (ACTUAL BICARBONATE) 19.7 MEQ/L (23-27); HEMOBLOGIN CONTENT 10.8 G/DL (14-18); INSTRUMENT SERIAL # 8083; METHEMOGLOBIN 0.3 % (0-3); O2 CONTENT 15.1 VOL% (18-24); OPERATOR ID 33449; PCO2 (CO2 TENSION) 46 MMHG (35-45); PO2 (O2 TENSION) 135 MMHG (79-93); SAMPLE Arterial; pH 7.25 (7.37-7.43)
[2016-12-06 21:05] LABS: ALLENS TEST Pos; MODE CMV; TIDAL VOLUME 550 ML
[2016-12-07 04:02] LABS: BASOPHILS 0 %; EOSINOPHILS 0 %; HEMATOCRIT 30.7 % (40.0-51.0); HEMOGLOBIN 10.1 g/dL (13.6-17.8); IMMATURE GRANULOCYTES 0.3 %; IMMATURE GRANULOCYTES ABSOLUTE 0.05 10/3/uL (0.0-0.11); LYMPHOCYTES 2.5 %; LYMPHOCYTES ABSOLUTE 0.39 10/3/uL (0.67-4.30); MEAN CORPUS HGB CONC 32.9 g/dL (32.0-36.0); MEAN CORPUSCULAR VOLUME 88.2 fL (80-100); MEAN PLATELET VOLUME 8.1 fL (9.2-13.0); MONOCYTES 7.8 %; MONOCYTES ABSOLUTE 1.22 10/3/uL (0.21-1.20); NEUTROPHILS 89.4 %; NEUTROPHILS ABSOLUTE 13.97 10/3/uL (2.02-8.40); PLATELET COUNT 380 10/3/uL (150-400); RBC DISTRIBUTION WIDTH 14.2 % (12.0-16.0); RED CELL COUNT 3.48 10/6/uL (4.7-6.1)
[2016-12-07 04:03] LABS: MANUAL DIFF NO %; WHITE BLOOD CELLS 15.6 10/3/uL (4.5-10.5)
[2016-12-07 04:13] LABS: BUN (BLOOD UREA NITROGEN) 45 MG/DL (6-23); CALCIUM, SERUM 8.1 MG/DL (8.5-10.4); CHLORIDE, SERUM 106 MMOL/L (96-112); CO2 (CARBON DIOXIDE) 23 MMOL/L (24-34); CREATININE 3.57 MG/DL (0.70-1.30); GFR AFRICAN AMERICAN 18 ML/MIN (>=60); GFR NON AFRICAN AMERICAN 16 ML/MIN (>=60); GLUCOSE, SERUM 155 MG/DL (60-99); POTASSIUM, SERUM 4.3 MMOL/L (3.5-5.3); SODIUM, SERUM 139 MMOL/L (135-148)
[2016-12-07 04:18] LABS: BE (BASE EXCESS) -4.3 MEQ/L (0 +/- 2.5); CARBOXYHEMOGLOBIN 0.3 % (0-3); HCO3 (ACTUAL BICARBONATE) 22.1 MEQ/L (23-27); HEMOBLOGIN CONTENT 10.7 G/DL (14-18); INSTRUMENT SERIAL # 35151; METHEMOGLOBIN 1.1 % (0-3); O2 CONTENT 14.3 VOL% (18-24); OPERATOR ID 17589; PCO2 (CO2 TENSION) 46 MMHG (35-45); PO2 (O2 TENSION) 85 MMHG (79-93); SAMPLE Arterial
[2016-12-07 04:19] LABS: TIDAL VOLUME 550 ML
[2016-12-08 03:33] LABS: BASOPHILS 0 %; EOSINOPHILS 0 %; HEMOGLOBIN 11.1 g/dL (13.6-17.8); IMMATURE GRANULOCYTES 0.4 %; IMMATURE GRANULOCYTES ABSOLUTE 0.04 10/3/uL (0.0-0.11); LYMPHOCYTES 2.9 %; MEAN CORPUS HGB CONC 32.7 g/dL (32.0-36.0); MEAN CORPUSCULAR HEMOGLOB 29.4 pg (26.0-34.0); MEAN CORPUSCULAR VOLUME 89.7 fL (80-100); MEAN PLATELET VOLUME 8.2 fL (9.2-13.0); MONOCYTES 5.7 %; PLATELET COUNT 266 10/3/uL (150-400); RBC DISTRIBUTION WIDTH 14.3 % (12.0-16.0); RED CELL COUNT 3.78 10/6/uL (4.7-6.1); WHITE BLOOD CELLS 10.4 10/3/uL (4.5-10.5)
[2016-12-08 03:39] LABS: HEMATOCRIT 33.9 % (40.0-51.0); MANUAL DIFF NO %
[2016-12-08 03:46] LABS: BUN (BLOOD UREA NITROGEN) 43 MG/DL (6-23); CALCIUM, SERUM 7.9 MG/DL (8.5-10.4); CHLORIDE, SERUM 102 MMOL/L (96-112); CREATININE 3.63 MG/DL (0.70-1.30); GFR AFRICAN AMERICAN 18 ML/MIN (>=60); GFR NON AFRICAN AMERICAN 15 ML/MIN (>=60); GLUCOSE, SERUM 141 MG/DL (60-99); POTASSIUM, SERUM 4.3 MMOL/L (3.5-5.3); SODIUM, SERUM 140 MMOL/L (135-148)
[2016-12-08 03:47] LABS: CO2 (CARBON DIOXIDE) 31 MMOL/L (24-34)
[2016-12-08 03:57] LABS: ALLENS TEST Pos; BE (BASE EXCESS) 1.2 MEQ/L (0 +/- 2.5); CARBOXYHEMOGLOBIN 0.3 % (0-3); HCO3 (ACTUAL BICARBONATE) 31.2 MEQ/L (23-27); HEMOBLOGIN CONTENT 11.5 G/DL (14-18); INSTRUMENT SERIAL # 35151; METHEMOGLOBIN 0.6 % (0-3); MODE CMV; O2 CONTENT 14.9 VOL% (18-24); OPERATOR ID 13861; PCO2 (CO2 TENSION) 82 MMHG (35-45); PO2 (O2 TENSION) 73 MMHG (79-93); SAMPLE Arterial; TIDAL VOLUME 550 ML
[2016-12-08 14:42] LABS: BE (BASE EXCESS) 5.3 MEQ/L (0 +/- 2.5); CARBOXYHEMOGLOBIN 0.3 % (0-3); HCO3 (ACTUAL BICARBONATE) 31.9 MEQ/L (23-27); HEMOBLOGIN CONTENT 10.7 G/DL (14-18); INSTRUMENT SERIAL # 35151; METHEMOGLOBIN 0.5 % (0-3); O2 CONTENT 13.3 VOL% (18-24); PCO2 (CO2 TENSION) 57 MMHG (35-45); PO2 (O2 TENSION) 58 MMHG (79-93); SAMPLE Arterial; pH 7.36 (7.37-7.43)
[2016-12-08 14:43] LABS: ALLENS TEST Pos; TIDAL VOLUME 650 ML
[2016-12-08 15:18] LABS: CALCIUM, SERUM 7.8 MG/DL (8.5-10.4); CHLORIDE, SERUM 103 MMOL/L (96-112); CO2 (CARBON DIOXIDE) 31 MMOL/L (24-34); CREATININE 3.34 MG/DL (0.70-1.30); GFR AFRICAN AMERICAN 20 ML/MIN (>=60); GFR NON AFRICAN AMERICAN 17 ML/MIN (>=60); GLUCOSE, SERUM 145 MG/DL (60-99); POTASSIUM, SERUM 3.7 MMOL/L (3.5-5.3); SGPT(ALT) 21 U/L (5-65); SODIUM, SERUM 140 MMOL/L (135-148); TOTAL BILIRUBIN 0.3 MG/DL (0-1.2)
[2016-12-08 15:19] LABS: A/G RATIO 0.5 (0.7-1.9); ALBUMIN 1.8 G/DL (3.5-5.0); ALKALINE PHOSPHATASE 47 U/L (45-117); BUN (BLOOD UREA NITROGEN) 48 MG/DL (6-23); PHOSPHORUS, SERUM 4.3 MG/DL (2.5-4.5); SGOT(AST) 23 U/L (5-40); TOTAL PROTEIN 5.8 G/DL (6.0-8.5)
[2016-12-08 23:16] LABS: BASOPHILS 0 %; EOSINOPHILS 0 %; HEMOGLOBIN 9.1 g/dL (13.6-17.8); IMMATURE GRANULOCYTES 0.3 %; IMMATURE GRANULOCYTES ABSOLUTE 0.03 10/3/uL (0.0-0.11); LYMPHOCYTES 1.9 %; LYMPHOCYTES ABSOLUTE 0.19 10/3/uL (0.67-4.30); MEAN CORPUS HGB CONC 34.2 g/dL (32.0-36.0); MEAN CORPUSCULAR VOLUME 87.8 fL (80-100); MEAN PLATELET VOLUME 8.1 fL (9.2-13.0); NEUTROPHILS 93.8 %; NEUTROPHILS ABSOLUTE 9.26 10/3/uL (2.02-8.40); PLATELET COUNT 281 10/3/uL (150-400); RBC DISTRIBUTION WIDTH 14.1 % (12.0-16.0); RED CELL COUNT 3.03 10/6/uL (4.7-6.1); WHITE BLOOD CELLS 9.9 10/3/uL (4.5-10.5)
[2016-12-08 23:18] LABS: HEMATOCRIT 26.6 % (40.0-51.0); MANUAL DIFF NO %
[2016-12-08 23:37] LABS: BUN (BLOOD UREA NITROGEN) 27 MG/DL (6-23); CALCIUM, SERUM 6.5 MG/DL (8.5-10.4); CHLORIDE, SERUM 103 MMOL/L (96-112); CO2 (CARBON DIOXIDE) 33 MMOL/L (24-34); CREATININE 1.69 MG/DL (0.70-1.30); GFR AFRICAN AMERICAN 45 ML/MIN (>=60); GFR NON AFRICAN AMERICAN 39 ML/MIN (>=60); GLUCOSE, SERUM 148 MG/DL (60-99); POTASSIUM, SERUM 3.7 MMOL/L (3.5-5.3); SODIUM, SERUM 141 MMOL/L (135-148)
[2016-12-09 04:18] LABS: BE (BASE EXCESS) 3.4 MEQ/L (0 +/- 2.5); CARBOXYHEMOGLOBIN 0.6 % (0-3); HCO3 (ACTUAL BICARBONATE) 28.9 MEQ/L (23-27); HEMOBLOGIN CONTENT 9.8 G/DL (14-18); INSTRUMENT SERIAL # 8083; METHEMOGLOBIN 0.4 % (0-3); O2 CONTENT 12.6 VOL% (18-24); PCO2 (CO2 TENSION) 49 MMHG (35-45); PO2 (O2 TENSION) 66 MMHG (79-93); pH 7.39 (7.37-7.43)
[2016-12-09 04:19] LABS: ALLENS TEST Pos; MODE CMV; OPERATOR ID 33449; SAMPLE Arterial; TIDAL VOLUME 650 ML
[2016-12-09 05:04] LABS: BASOPHILS 0 %; EOSINOPHILS 0 %; HEMATOCRIT 26.5 % (40.0-51.0); IMMATURE GRANULOCYTES 0.2 %; IMMATURE GRANULOCYTES ABSOLUTE 0.02 10/3/uL (0.0-0.11); LYMPHOCYTES 2.9 %; LYMPHOCYTES ABSOLUTE 0.24 10/3/uL (0.67-4.30); MEAN CORPUSCULAR HEMOGLOB 29.6 pg (26.0-34.0); MEAN CORPUSCULAR VOLUME 87.2 fL (80-100); MEAN PLATELET VOLUME 8.3 fL (9.2-13.0); MONOCYTES ABSOLUTE 0.42 10/3/uL (0.21-1.20); NEUTROPHILS 91.9 %; NEUTROPHILS ABSOLUTE 7.72 10/3/uL (2.02-8.40); PLATELET COUNT 245 10/3/uL (150-400); RBC DISTRIBUTION WIDTH 14.4 % (12.0-16.0); RED CELL COUNT 3.04 10/6/uL (4.7-6.1); WHITE BLOOD CELLS 8.4 10/3/uL (4.5-10.5)
[2016-12-09 05:05] LABS: MANUAL DIFF NO %
[2016-12-09 05:21] LABS: A/G RATIO 0.5 (0.7-1.9); ALBUMIN 1.7 G/DL (3.5-5.0); ALKALINE PHOSPHATASE 39 U/L (45-117); CHLORIDE, SERUM 102 MMOL/L (96-112); CO2 (CARBON DIOXIDE) 32 MMOL/L (24-34); GLOBULIN 3.6 G/DL (2.5-4.1); GLUCOSE, SERUM 135 MG/DL (60-99); POTASSIUM, SERUM 3.6 MMOL/L (3.5-5.3); SGOT(AST) 14 U/L (5-40); SGPT(ALT) 18 U/L (5-65); SODIUM, SERUM 142 MMOL/L (135-148); TOTAL BILIRUBIN 0.4 MG/DL (0-1.2); TOTAL PROTEIN 5.3 G/DL (6.0-8.5)
[2016-12-09 05:24] LABS: BUN (BLOOD UREA NITROGEN) 19 MG/DL (6-23); CALCIUM, SERUM 6.5 MG/DL (8.5-10.4); CREATININE 1.17 MG/DL (0.70-1.30); GFR AFRICAN AMERICAN 70 ML/MIN (>=60); GFR NON AFRICAN AMERICAN 61 ML/MIN (>=60); PHOSPHORUS, SERUM 3.4 MG/DL (2.5-4.5)
[2016-12-09 11:22] LABS: BASOPHILS 0 %; EOSINOPHILS 0.1 %; EOSINOPHILS ABSOLUTE 0.01 10/3/uL (0.0-0.53); HEMATOCRIT 25.4 % (40.0-51.0); HEMOGLOBIN 8.4 g/dL (13.6-17.8); IMMATURE GRANULOCYTES 0.3 %; IMMATURE GRANULOCYTES ABSOLUTE 0.03 10/3/uL (0.0-0.11); LYMPHOCYTES 4.4 %; LYMPHOCYTES ABSOLUTE 0.42 10/3/uL (0.67-4.30); MEAN CORPUS HGB CONC 33.1 g/dL (32.0-36.0); MEAN CORPUSCULAR HEMOGLOB 29.1 pg (26.0-34.0); MEAN CORPUSCULAR VOLUME 87.9 fL (80-100); MEAN PLATELET VOLUME 8.1 fL (9.2-13.0); MONOCYTES 6.6 %; MONOCYTES ABSOLUTE 0.63 10/3/uL (0.21-1.20); NEUTROPHILS 88.6 %; NEUTROPHILS ABSOLUTE 8.48 10/3/uL (2.02-8.40); PLATELET COUNT 252 10/3/uL (150-400); RBC DISTRIBUTION WIDTH 14.4 % (12.0-16.0); RED CELL COUNT 2.89 10/6/uL (4.7-6.1); WHITE BLOOD CELLS 9.6 10/3/uL (4.5-10.5)
[2016-12-09 11:23] LABS: MANUAL DIFF NO %
[2016-12-09 11:33] LABS: CHLORIDE, SERUM 106 MMOL/L (96-112); CO2 (CARBON DIOXIDE) 29 MMOL/L (24-34); CREATININE 1.01 MG/DL (0.70-1.30); GFR AFRICAN AMERICAN 84 ML/MIN (>=60); GFR NON AFRICAN AMERICAN 72 ML/MIN (>=60); POTASSIUM, SERUM 3.7 MMOL/L (3.5-5.3); SODIUM, SERUM 142 MMOL/L (135-148)
[2016-12-09 11:34] LABS: BUN (BLOOD UREA NITROGEN) 14 MG/DL (6-23); CALCIUM, SERUM 7.9 MG/DL (8.5-10.4); GLUCOSE, SERUM 106 MG/DL (60-99); PHOSPHORUS, SERUM 2.4 MG/DL (2.5-4.5)
[2016-12-09 18:03] LABS: BASOPHILS 0 %; EOSINOPHILS 0.2 %; EOSINOPHILS ABSOLUTE 0.02 10/3/uL (0.0-0.53); HEMATOCRIT 26.4 % (40.0-51.0); HEMOGLOBIN 8.7 g/dL (13.6-17.8); IMMATURE GRANULOCYTES 0.4 %; IMMATURE GRANULOCYTES ABSOLUTE 0.04 10/3/uL (0.0-0.11); LYMPHOCYTES 5.7 %; LYMPHOCYTES ABSOLUTE 0.64 10/3/uL (0.67-4.30); MEAN CORPUSCULAR HEMOGLOB 29.3 pg (26.0-34.0); MEAN CORPUSCULAR VOLUME 88.9 fL (80-100); MEAN PLATELET VOLUME 8.3 fL (9.2-13.0); MONOCYTES 5.7 %; MONOCYTES ABSOLUTE 0.64 10/3/uL (0.21-1.20); NEUTROPHILS ABSOLUTE 9.86 10/3/uL (2.02-8.40); PLATELET COUNT 280 10/3/uL (150-400); RBC DISTRIBUTION WIDTH 14.5 % (12.0-16.0); RED CELL COUNT 2.97 10/6/uL (4.7-6.1); WHITE BLOOD CELLS 11.2 10/3/uL (4.5-10.5)
[2016-12-09 18:04] LABS: MANUAL DIFF NO %
[2016-12-09 18:15] LABS: BUN (BLOOD UREA NITROGEN) 12 MG/DL (6-23); CALCIUM, SERUM 8.3 MG/DL (8.5-10.4); CHLORIDE, SERUM 105 MMOL/L (96-112); CO2 (CARBON DIOXIDE) 30 MMOL/L (24-34); CREATININE 0.96 MG/DL (0.70-1.30); GFR AFRICAN AMERICAN 89 ML/MIN (>=60); GFR NON AFRICAN AMERICAN 77 ML/MIN (>=60); GLUCOSE, SERUM 106 MG/DL (60-99); POTASSIUM, SERUM 3.9 MMOL/L (3.5-5.3); SODIUM, SERUM 140 MMOL/L (135-148)
[2016-12-09 18:25] LABS: ALLENS TEST Pos; BE (BASE EXCESS) 0.5 MEQ/L (0 +/- 2.5); CARBOXYHEMOGLOBIN 0.1 % (0-3); HCO3 (ACTUAL BICARBONATE) 27.1 MEQ/L (23-27); HEMOBLOGIN CONTENT 9.6 G/DL (14-18); INSTRUMENT SERIAL # 35151; METHEMOGLOBIN 0.7 % (0-3); MODE CMV; O2 CONTENT 12.9 VOL% (18-24); OPERATOR ID 14382; PCO2 (CO2 TENSION) 54 MMHG (35-45); PO2 (O2 TENSION) 86 MMHG (79-93); SAMPLE Arterial; TIDAL VOLUME 650 ML; pH 7.32 (7.37-7.43)
[2016-12-09 20:28] LABS: ALLENS TEST Pos; BE (BASE EXCESS) -1.6 MEQ/L (0 +/- 2.5); CARBOXYHEMOGLOBIN 0.2 % (0-3); HCO3 (ACTUAL BICARBONATE) 25.9 MEQ/L (23-27); HEMOBLOGIN CONTENT 10.5 G/DL (14-18); INSTRUMENT SERIAL # 35151; METHEMOGLOBIN 0.6 % (0-3); MODE CMV; O2 CONTENT 11.3 VOL% (18-24); OPERATOR ID 17370; PCO2 (CO2 TENSION) 58 MMHG (35-45); PO2 (O2 TENSION) 47 MMHG (79-93); SAMPLE Arterial; TIDAL VOLUME 650 ML; pH 7.27 (7.37-7.43)
[2016-12-09 23:19] LABS: BASOPHILS 0 %; EOSINOPHILS 0.4 %; EOSINOPHILS ABSOLUTE 0.06 10/3/uL (0.0-0.53); HEMATOCRIT 28.5 % (40.0-51.0); HEMOGLOBIN 9.2 g/dL (13.6-17.8); IMMATURE GRANULOCYTES 0.5 %; IMMATURE GRANULOCYTES ABSOLUTE 0.08 10/3/uL (0.0-0.11); LYMPHOCYTES 3.6 %; LYMPHOCYTES ABSOLUTE 0.61 10/3/uL (0.67-4.30); MANUAL DIFF NO %; MEAN CORPUS HGB CONC 32.3 g/dL (32.0-36.0); MEAN CORPUSCULAR HEMOGLOB 29.2 pg (26.0-34.0); MEAN CORPUSCULAR VOLUME 90.5 fL (80-100); MEAN PLATELET VOLUME 7.9 fL (9.2-13.0); MONOCYTES 4.5 %; MONOCYTES ABSOLUTE 0.76 10/3/uL (0.21-1.20); NEUTROPHILS ABSOLUTE 15.34 10/3/uL (2.02-8.40); PLATELET COUNT 292 10/3/uL (150-400); RBC DISTRIBUTION WIDTH 14.7 % (12.0-16.0); RED CELL COUNT 3.15 10/6/uL (4.7-6.1); WHITE BLOOD CELLS 16.9 10/3/uL (4.5-10.5)
[2016-12-09 23:33] LABS: BUN (BLOOD UREA NITROGEN) 13 MG/DL (6-23); CALCIUM, SERUM 8.3 MG/DL (8.5-10.4); CHLORIDE, SERUM 109 MMOL/L (96-112); CO2 (CARBON DIOXIDE) 26 MMOL/L (24-34); CREATININE 0.92 MG/DL (0.70-1.30); GFR AFRICAN AMERICAN 94 ML/MIN (>=60); GFR NON AFRICAN AMERICAN 81 ML/MIN (>=60); GLUCOSE, SERUM 92 MG/DL (60-99); POTASSIUM, SERUM 4.3 MMOL/L (3.5-5.3); SODIUM, SERUM 143 MMOL/L (135-148)
[2016-12-10 01:51] LABS: ALLENS TEST Pos; BE (BASE EXCESS) -5.2 MEQ/L (0 +/- 2.5); CARBOXYHEMOGLOBIN 0.3 % (0-3); HCO3 (ACTUAL BICARBONATE) 23.9 MEQ/L (23-27); HEMOBLOGIN CONTENT 10.5 G/DL (14-18); INSTRUMENT SERIAL # 35151; METHEMOGLOBIN 0.8 % (0-3); MODE CMV; O2 CONTENT 12.1 VOL% (18-24); OPERATOR ID 17370; PCO2 (CO2 TENSION) 67 MMHG (35-45); PO2 (O2 TENSION) 58 MMHG (79-93); SAMPLE Arterial; TIDAL VOLUME 650 ML; pH 7.17 (7.37-7.43)
[2016-12-10 03:33] LABS: BE (BASE EXCESS) -4.4 MEQ/L (0 +/- 2.5); CARBOXYHEMOGLOBIN 0.3 % (0-3); HCO3 (ACTUAL BICARBONATE) 23.2 MEQ/L (23-27); HEMOBLOGIN CONTENT 10.4 G/DL (14-18); INSTRUMENT SERIAL # 35151; METHEMOGLOBIN 0.9 % (0-3); MODE CMV; O2 CONTENT 12.7 VOL% (18-24); PCO2 (CO2 TENSION) 55 MMHG (35-45); PO2 (O2 TENSION) 60 MMHG (79-93); SAMPLE Arterial; TIDAL VOLUME 700 ML; pH 7.25 (7.37-7.43)
[2016-12-10 05:33] LABS: BASOPHILS 0.1 %; BASOPHILS ABSOLUTE 0.01 10/3/uL (0.0-0.16); EOSINOPHILS 1.3 %; EOSINOPHILS ABSOLUTE 0.23 10/3/uL (0.0-0.53); HEMATOCRIT 29.9 % (40.0-51.0); HEMOGLOBIN 9.7 g/dL (13.6-17.8); IMMATURE GRANULOCYTES 0.7 %; IMMATURE GRANULOCYTES ABSOLUTE 0.12 10/3/uL (0.0-0.11); LYMPHOCYTES 6.8 %; LYMPHOCYTES ABSOLUTE 1.24 10/3/uL (0.67-4.30); MEAN CORPUS HGB CONC 32.4 g/dL (32.0-36.0); MEAN CORPUSCULAR HEMOGLOB 29.4 pg (26.0-34.0); MEAN CORPUSCULAR VOLUME 90.6 fL (80-100); MEAN PLATELET VOLUME 8.2 fL (9.2-13.0); MONOCYTES 5.9 %; MONOCYTES ABSOLUTE 1.09 10/3/uL (0.21-1.20); NEUTROPHILS 85.2 %; NEUTROPHILS ABSOLUTE 15.65 10/3/uL (2.02-8.40); PLATELET COUNT 354 10/3/uL (150-400); RBC DISTRIBUTION WIDTH 14.9 % (12.0-16.0); WHITE BLOOD CELLS 18.3 10/3/uL (4.5-10.5)
[2016-12-10 05:36] LABS: MANUAL DIFF NO %
[2016-12-10 05:46] LABS: BUN (BLOOD UREA NITROGEN) 12 MG/DL (6-23); CALCIUM, SERUM 8.7 MG/DL (8.5-10.4); CHLORIDE, SERUM 105 MMOL/L (96-112); CO2 (CARBON DIOXIDE) 24 MMOL/L (24-34); CREATININE 1.06 MG/DL (0.70-1.30); GFR AFRICAN AMERICAN 79 ML/MIN (>=60); GFR NON AFRICAN AMERICAN 68 ML/MIN (>=60); GLUCOSE, SERUM 111 MG/DL (60-99); PHOSPHORUS, SERUM 3.6 MG/DL (2.5-4.5); POTASSIUM, SERUM 3.7 MMOL/L (3.5-5.3); SODIUM, SERUM 139 MMOL/L (135-148)
== END 2016-12-10 09:18 | disposition expired | DRG 166 ==
LOC: ER 09:59 → 7NO 13:49 → IMCU 12-06 09:29 → CCU 12-06 09:50
PROVIDERS: Emergency Medicine; Internal Medicine; Internal Medicine Critical Care Medicine; Internal Medicine Nephrology
PROC: 5A1955Z Respiratory Ventilation, Greater than 96 Consecutive Hours (ICD-10-PCS; 2016-12-06)
PROC: 02HV33Z Insertion of Infusion Device into Superior Vena Cava, Percutaneous Approach (ICD-10-PCS; 2016-12-06)
PROC: 4A02X4A Measurement of Cardiac Electrical Activity, Guidance, External Approach (ICD-10-PCS; 2016-12-06)
PROC: 0BH17EZ Insertion of Endotracheal Airway into Trachea, Via Natural or Artificial Opening (ICD-10-PCS; 2016-12-06)
PROC: 5A09457 Assistance with Respiratory Ventilation, 24-96 Consecutive Hours, Continuous Positive Airway Pressure (ICD-10-PCS; 2016-12-06)
PROC: 5A1D60Z (ICD-10-PCS; 2016-12-06)
PROC: 05HM33Z Insertion of Infusion Device into Right Internal Jugular Vein, Percutaneous Approach (ICD-10-PCS; 2016-12-08)
PROC: B543ZZA Ultrasonography of Right Jugular Veins, Guidance (ICD-10-PCS; 2016-12-08)
PROC: 0B9F8ZX Drainage of Right Lower Lung Lobe, Via Natural or Artificial Opening Endoscopic, Diagnostic (ICD-10-PCS; principal; 2016-12-09)
DX: J96.01 Acute respiratory failure with hypoxia (principal); R65.21 Severe sepsis with septic shock; A41.9 Sepsis, unspecified organism; J18.9 Pneumonia, unspecified organism; E87.2 Acidosis; J44.9 Chronic obstructive pulmonary disease, unspecified; C34.31 Malignant neoplasm of lower lobe, right bronchus or lung; I48.0 Paroxysmal atrial fibrillation; I47.1 Supraventricular tachycardia; E87.1 Hypo-osmolality and hyponatremia; D64.9 Anemia, unspecified; J43.9 Emphysema, unspecified; J96.21 Acute and chronic respiratory failure with hypoxia; J96.22 Acute and chronic respiratory failure with hypercapnia; N14.1 Nephropathy induced by other drugs, medicaments and biological substances; N40.1 Benign prostatic hyperplasia with lower urinary tract symptoms; I25.10 Atherosclerotic heart disease of native coronary artery without angina pectoris; T50.8X5A Adverse effect of diagnostic agents, initial encounter; Y92.239 Unspecified place in hospital as the place of occurrence of the external cause; E78.5 Hyperlipidemia, unspecified; K63.5 Polyp of colon; F32.9 Major depressive disorder, single episode, unspecified; J98.4 Other disorders of lung; Z92.3 Personal history of irradiation; Z85.118 Personal history of other malignant neoplasm of bronchus and lung; Z95.5 Presence of coronary angioplasty implant and graft; Z88.8 Allergy status to other drugs, medicaments and biological substances; Z82.49 Family history of ischemic heart disease and other diseases of the circulatory system; Z80.9 Family history of malignant neoplasm, unspecified; Z87.891 Personal history of nicotine dependence; Z98.890 Other specified postprocedural states
CPT/HCPCS: 31720; 36569; 36600; 71010; 71275; 73060-LT; 74000; 80048; 80053; 80202; 81001; 82330; 82570; 82805; 83605; 83735; 83880; 84100; 84145; 84300; 84484; 85025; 85610; 85730; 87040; 87070; 87205; 92950; 93005; 94003; 94640; 94770; 96365; 99285; A9270-GY; C1751; C1752; C1894; C8929; C9113; J0153; J0282; J0610; J1940; J1956; J2370; J2543; J2930; J3010; J3370; J3475; P9047; Q9957